=== PATIENT | female | born 1985 | race Caucasian/White ===

== ENCOUNTER 2024-06-12 08:31 | Emergency (ER) | payer MEDICAID ==
[~2024-06-12] VITALS: Ht 162.6 cm; Wt 54.4 kg
[2024-06-12] MEDS ORDERED: LORAZEPAM 1 MG TABLET ONE (08:58)
[2024-06-12] MEDS: LORAZEPAM 1 MG TABLET PO ONE (09:00)
[2024-06-12 09:43] VITALS: BP 128/77; TEMP 98.5; O2SAT 97
== END 2024-06-12 09:43 | disposition home or self-care (01) ==
LOC: ER 08:35
DX: F10.10 Alcohol abuse, uncomplicated (principal); Y90.0 Blood alcohol level of less than 20 mg/100 ml
CPT/HCPCS: 98960

== ENCOUNTER 2024-10-22 12:22 | Emergency (ER) | payer MEDICAID, OTHER ==
[~2024-10-22] VITALS: Ht 162.6 cm; Wt 54.4 kg
[2024-10-22 12:33] VITALS: TEMP 98.7
[2024-10-22] MEDS ORDERED: METOCLOPRAMIDE HCL 10 MG/2 ML VIAL ONE (13:07)
[2024-10-22] MEDS ORDERED: ONDANSETRON HCL/PF 4 MG/2 ML VIAL ONE (13:07)
[2024-10-22] MEDS: IV NS 0.9% 1,000 ML BAG IV ONE (13:10)
[2024-10-22] MEDS: ONDANSETRON HCL/PF 4 MG/2 ML VIAL IVP ONE (13:15)
[2024-10-22] MEDS: METOCLOPRAMIDE HCL 10 MG/2 ML VIAL IV ONE (13:16)
[2024-10-22] MEDS ORDERED: METO-295 PO (13:57)
[2024-10-22] MEDS ORDERED: ONDA4TAB5 PO (13:57)
[2024-10-22 14:19] VITALS: BP 120/75; O2SAT 98
== END 2024-10-22 14:19 | disposition home or self-care (01) ==
LOC: ER 12:22
DX: F10.10 Alcohol abuse, uncomplicated (principal); K29.20 Alcoholic gastritis without bleeding; F41.9 Anxiety disorder, unspecified; R11.2 Nausea with vomiting, unspecified; Y90.9 Presence of alcohol in blood, level not specified
CPT/HCPCS: 99284; 96374; 96361; 96375; J2765; J2405; J7030